=== PATIENT | female | born 1935 | race Caucasian/White ===

== ENCOUNTER → 2018-05-09 | Outpatient (CLI) | payer MEDICARE, BC ==
[2014-08-03 07:06] VITALS: BP 137/68
[~2018-05-09] MED LIST: BACTRIM DS 8001 TA1 PO; CALCIUM WITH VI1 TAB; CENTRUM SILVER1 TA1; LEVOTHYROXIN0.075 MG; XALATAN EYE DROPS OU
== END ==
LOC: MSO 08:29 → EDSTATUS 09:19 → MSO 11:34
DX: H26.9 Unspecified cataract (principal); Z88.1 Allergy status to other antibiotic agents

== ENCOUNTER → 2018-05-23 | Day surgery (SDC) | payer MEDICARE, BC ==
[2014-08-03 07:06] VITALS: BP 137/68
== END ==
LOC: MSO 12:02
DX: H26.9 Unspecified cataract (principal); E03.9 Hypothyroidism, unspecified; I10 Essential (primary) hypertension; Z90.49 Acquired absence of other specified parts of digestive tract; Z95.5 Presence of coronary angioplasty implant and graft; Z79.82 Long term (current) use of aspirin; Z88.1 Allergy status to other antibiotic agents
CPT/HCPCS: 00142; A9270-GY; J0171; J2250; V2632

== ENCOUNTER 2020-04-17 08:52 | Emergency (ER) | payer MEDICARE, BC ==
[~2020-04-17] VITALS: Ht 170.2 cm; Wt 76.4 kg
[2020-04-17 10:12] LABS: EOS # 0.1 (0.04-0.40); EOS % 1.4 % (1.0-5.0); HEMATOCRIT 42.3 % (37.0-47.0); HEMOGLOBIN 13.3 g/dL (12.5-16.0); LYMPH# 1.1 (1.50-4.00); MEAN CELL VOLUME 88 fl (78-100); MEAN CORPUSCULAR HEMOGLOBIN 28 pg (27-31); MEAN CORPUSCULAR HGB CONC 31 g/dL (33-37); MEAN PLATELET VOLUME 9.6 fl (7.4-10.4); MONO # 0.4 (0.20-0.80); NEU # 3.6 (1.40-6.50); PLATELET COUNT 160 K/mm3 (130-400); RED CELL DISTRIBUTION WIDTH 13.8 % (11.5-14.5); WHITE BLOOD COUNT 5.2 K/mm3 (4.8-10.8)
[2020-04-17 10:15] LABS: ALBUMIN 3.9 g/dL (3.4-4.8); POTASSIUM 4.2 mmol/L (3.5-5.1); SODIUM 139 mmol/L (136-145)
[2020-04-17 10:16] LABS: CALCIUM 9.5 mg/dL (8.3-10.5)
[2020-04-17 10:17] LABS: GLUCOSE 99 mg/dL (65-105); TOTAL PROTEIN 6.9 g/dL (6.2-8.1)
[2020-04-17 10:19] LABS: CARBON DIOXIDE 24 mmol/L (23-31); TOTAL BILIRUBIN 0.6 mg/dL (0.2-1.2)
[2020-04-17 10:23] LABS: AST-SGOT 25 U/L (5-34)
[2020-04-17 10:24] LABS: ALT/SGPT 20 U/L (0-55)
[2020-04-17 10:35] LABS: TROPONIN-I < 0.03 ng/mL (<0.030)
[2020-04-17 11:00] LABS: D-DIMER 0.56 mg/L FEU (0.15-0.50)
[2020-04-17 11:17] LABS: URINE WBC 0 /hpf (0-3)
[2020-04-17 11:29] LABS: URINE APPEARANCE CLEAR; URINE BILIRUBIN NEGATIVE (NEGATIVE); URINE BLOOD TRACE (NEGATIVE); URINE COLOR YELLOW; URINE GLUCOSE NEGATIVE (NEGATIVE); URINE KETONE NEGATIVE (NEGATIVE); URINE LEUKOCYTE ESTERASE NEGATIVE (NEGATIVE); URINE NITRATE NEGATIVE (NEGATIVE); URINE PROTEIN(semi-quant) TRACE mg/dL (NEGATIVE); URINE UROBILINOGEN NORMAL (NORMAL)
[2020-04-17] MEDS ORDERED: ILEVRO 1.7 ML1.7 ML OP (11:51)
[2020-04-17] MEDS ORDERED: SIMVASTATIN40 M1 PO (11:52)
[2020-04-17] MEDS ORDERED: METOPROLOL SUCC25 M1 PO (11:52)
[2020-04-17] MEDS ORDERED: ELIQUIS2.5 MG (11:54)
[2020-04-17 13:57] VITALS: BP 165/66
== END 2020-04-17 13:57 | disposition home or self-care (01) ==
LOC: ED 08:52
PROVIDERS: Physician Assistant
DX: R07.89 Other chest pain (principal); I10 Essential (primary) hypertension; E78.5 Hyperlipidemia, unspecified; E03.9 Hypothyroidism, unspecified; I48.91 Unspecified atrial fibrillation; Z95.0 Presence of cardiac pacemaker; Z88.1 Allergy status to other antibiotic agents; Z79.01 Long term (current) use of anticoagulants; Z79.890 Hormone replacement therapy
CPT/HCPCS: Q9967

== ENCOUNTER 2021-09-21 20:37 | Emergency (ER) | payer MEDICARE, BC ==
[~2021-09-21] VITALS: Ht 170.2 cm; Wt 75.5 kg
[~2021-09-21 20:37] MED LIST changes: +CALCIUM 600 MG-1 TAB PO; -CALCIUM WITH VI1 TAB; +CENTRUM SILVER1 EAC1 PO; -CENTRUM SILVER1 TA1; +ELIQUIS2.5 MG; +ILEVRO 1.7 ML1.7 ML OP; -LEVOTHYROXIN0.075 MG; +LEVOTHYROXIN0.075 MG PO; +METOPROLOL SUCC25 M1 PO; +SIMVASTATIN40 M1 PO
[2021-09-21] MEDS ORDERED: XARELTO20 MG PO (20:56)
[2021-09-21 20:59] LABS: BASO # 0.02 K/mm3 (0.02-0.10); EOS # 0.07 K/mm3 (0.04-0.40); EOS % 1.1 % (1.0-5.0); HEMATOCRIT 42.7 % (37.0-47.0); HEMOGLOBIN 13.7 g/dL (12.5-16.0); MEAN CELL VOLUME 89 fl (78-100); MEAN CORPUSCULAR HEMOGLOBIN 28 pg (27-31); MEAN CORPUSCULAR HGB CONC 32 g/dL (33-37); MEAN PLATELET VOLUME 9.1 fl (7.4-10.4); MONO # 0.59 K/mm3 (0.20-0.80); NEU # 4.87 K/mm3 (1.40-6.50); PLATELET COUNT 134 K/mm3 (130-400); RED BLOOD COUNT 4.82 M/mm3 (4.10-5.30); RED CELL DISTRIBUTION WIDTH 13.3 % (11.5-14.5); WHITE BLOOD COUNT 6.7 K/mm3 (4.8-10.8)
[2021-09-21 21:08] LABS: ALBUMIN 4.2 g/dL (3.4-4.8)
[2021-09-21 21:09] LABS: POTASSIUM 4.3 mmol/L (3.5-5.1)
[2021-09-21 21:10] LABS: CALCIUM 9.9 mg/dL (8.3-10.5)
[2021-09-21 21:13] LABS: TOTAL BILIRUBIN 0.6 mg/dL (0.2-1.2); TOTAL PROTEIN 7.2 g/dL (6.2-8.1)
[2021-09-21 21:19] LABS: STREP SCREEN NEGATIVE (NEGATIVE)
[2021-09-21 21:54] VITALS: BP 175/83
[2021-09-22] MEDS ORDERED: ZOFRAN ODT4 MG PO (19:18)
== END 2021-09-21 21:54 | disposition home or self-care (01) ==
LOC: ED 20:37
PROVIDERS: Physician Assistant
DX: U07.1 COVID-19 (principal); I48.91 Unspecified atrial fibrillation; Z79.01 Long term (current) use of anticoagulants

== ENCOUNTER 2022-03-03 11:06 | Emergency (ER) | payer MEDICARE, BC ==
[~2022-03-03 11:06] MED LIST changes: +GUAIFEN-CODEIN118 ML PO; +TAMIFLU 75MG75 MG PO; +XARELTO20 MG PO; +ZOFRAN ODT4 MG PO
[2022-03-03 11:46] LABS: BASO # 0.01 K/mm3 (0.02-0.10); EOS # 0.07 K/mm3 (0.04-0.40); HEMATOCRIT 44.5 % (37.0-47.0); HEMOGLOBIN 14.2 g/dL (12.5-16.0); LYMPH# 1.52 K/mm3 (1.50-4.00); MEAN CELL VOLUME 88 fl (78-100); MEAN CORPUSCULAR HEMOGLOBIN 28 pg (27-31); MEAN CORPUSCULAR HGB CONC 32 g/dL (33-37); MEAN PLATELET VOLUME 9.6 fl (7.4-10.4); MONO # 0.49 K/mm3 (0.20-0.80); NEU # 4.75 K/mm3 (1.40-6.50); PLATELET COUNT 206 K/mm3 (130-400); RED BLOOD COUNT 5.07 M/mm3 (4.10-5.30); RED CELL DISTRIBUTION WIDTH 13.6 % (11.5-14.5); WHITE BLOOD COUNT 6.9 K/mm3 (4.8-10.8)
[2022-03-03 11:49] LABS: ALBUMIN 3.8 g/dL (3.4-4.8)
[2022-03-03 11:50] LABS: POTASSIUM 4.1 mmol/L (3.5-5.1); SODIUM 141 mmol/L (136-145)
[2022-03-03 11:51] LABS: CALCIUM 9.9 mg/dL (8.3-10.5)
[2022-03-03 11:52] LABS: GLUCOSE 102 mg/dL (65-105); TOTAL PROTEIN 6.9 g/dL (6.2-8.1)
[2022-03-03 11:53] LABS: CARBON DIOXIDE 23 mmol/L (23-31)
[2022-03-03 11:54] LABS: TOTAL BILIRUBIN 0.5 mg/dL (0.2-1.2)
[2022-03-03 11:57] LABS: AST-SGOT 23 U/L (5-34)
[2022-03-03 11:59] LABS: ALT/SGPT 23 U/L (0-55)
[2022-03-03 12:08] LABS: TROPONIN-I < 0.030 ng/mL (<0.030)
[2022-03-03 13:17] LABS: URINE APPEARANCE CLEAR; URINE BILIRUBIN NN (NEGATIVE); URINE BLOOD NEGATIVE (NEGATIVE); URINE COLOR YELLOW; URINE GLUCOSE NEGATIVE (NEGATIVE); URINE KETONE NEGATIVE (NEGATIVE); URINE LEUKOCYTE ESTERASE NEGATIVE (NEGATIVE); URINE NITRATE NEGATIVE (NEGATIVE); URINE PROTEIN(semi-quant) TRACE (NEGATIVE); URINE UROBILINOGEN NORMAL (NORMAL); URINE WBC 0-1 /hpf (0-3)
[2022-03-03 13:46] VITALS: BP 150/79
== END 2022-03-03 13:33 | disposition home or self-care (01) ==
LOC: ED 11:06
PROVIDERS: Physician Assistant
DX: I95.1 Orthostatic hypotension (principal); I48.0 Paroxysmal atrial fibrillation; R79.89 Other specified abnormal findings of blood chemistry; Z95.0 Presence of cardiac pacemaker; Z28.310 Unvaccinated for COVID-19; Z79.01 Long term (current) use of anticoagulants
CPT/HCPCS: J7040